=== PATIENT | male | born 1925 | race Caucasian/White ===

== ENCOUNTER → 2016-07-01 | Outpatient (CLI) | payer MEDICARE, OTHER | END | disposition disaster alternative care site (69) | LOC: LNHI 16:31 | DX: C81.90 Hodgkin lymphoma, unspecified, unspecified site (principal); I35.0 Nonrheumatic aortic (valve) stenosis; I48.2 Chronic atrial fibrillation ==

== ENCOUNTER → 2016-08-03 | Outpatient (CLI) | payer MEDICARE, OTHER | END | disposition disaster alternative care site (69) | LOC: GRAD 09:14 | DX: C81.11 Nodular sclerosis Hodgkin lymphoma, lymph nodes of head, face, and neck (principal); R91.8 Other nonspecific abnormal finding of lung field ==